=== PATIENT | male | born 1960 | race Caucasian/White ===

== ENCOUNTER 2016-09-18 08:00 | Emergency (ER) | payer OTHER ==
--- NOTE | 2016-09-18 09:50 | ED CLINICAL REPORT ---
Clinical Report - Physicians/Mid Levels [facility] [address] [place] [address] 09/18/2016 8:01 Patient: LAWRENCE AGOSTO Time Seen: 08:44 Sep 18 2016. Arrived- By private vehicle. Historian- patient. CPT: ER phys charges level 3 (#498151). HISTORY OF PRESENT ILLNESS Chief Complaint: CHEST PAIN. It is described as sharp, "pain" and well localized and it is described as located in the right chest area. At its maximum, severity described as moderate. When seen in the E.D., severity described as moderate. Modifying factors- worsened by movement. Relieved by rest. (trauma to the area 10 weeks ago. 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 No nausea, vomiting, difficulty breathing or diaphoresis. Similar symptoms previously: None. Recent medical care: Not recently seen/assessed. REVIEW OF SYSTEMS No fever, chills, cough, pedal edema or calf pain. No fainting episodes, sore throat, abdominal pain, black stools or difficulty with urination. No skin rash, enlarged lymph nodes or joint pain. All systems otherwise negative, except as recorded above. PAST HISTORY Negative cardiac w/u 1 year ago. Moderate gastroesophageal reflux. Medications: None. Allergies: No Known Drug Allergy. SOCIAL HISTORY Never smoker. Occasional alcohol use. No drug use. ADDITIONAL NOTES The nursing notes have been reviewed. PHYSICAL EXAM Vital Signs: 09/18/2016 08:13 BP: 150/91. HR: 77. RR: 18. O2 saturation: 100%. Temp: 98.6 F. Appearance: Alert. Patient in moderate distress. Eyes: Eyes normal inspection. ENT: Pharynx normal. Neck: Normal inspection. CVS: Normal heart rate and rhythm. Heart sounds normal. Pulses normal. Respiratory: No respiratory distress. Chest pain reproducible with palpation of the costal cartilage and anterior chest wall, with movement of the trunk and right arm and with deep breathing. Breath sounds normal. Abdomen: Soft and nontender. Back: Normal external inspection. Skin: Skin warm. Normal skin color. No rash. Extremities: Extremities exhibit normal ROM. No calf tenderness. No lower extremity edema. Neuro: Oriented X 3. No motor deficit. No sensory deficit. LABS, X-RAYS, AND EKG EKG: Normal EKG. X-Rays: Rib series negative. Chest X-ray: (mild bibasilar atelectasis.). Views: PA. Technique: good. The X-rays were independently viewed by me and interpreted contemporaneously by me. Prior films were not available for comparison. PROGRESS AND PROCEDURES Course of Care: [place]. Patient/family counseled. Disposition: Discharged. Condition: stable. CLINICAL IMPRESSION Right sided rib separation due to trauma. INSTRUCTIONS (Must wear an external tactical vest until symptoms resolve. It may take 12 weeks or longer to resolve symptoms.). Warnings: Further evaluation is necessary. GENERAL WARNINGS: Return or contact your physician immediately if your condition worsens or changes unexpectedly, if not improving as expected, or if other problems arise. OTC Medications: Acetaminophen (available over the counter): take according to label instructions. Motrin (available over the counter): take according to label instructions. Follow-up: Follow up with your doctor in one week. Call for an appointment. Understanding of the discharge instructions verbalized by patient. (Electronically signed by Jorge Diaz MD 09/22/2016 21:22)
--- NOTE | 2016-09-18 09:50 | ED NURSING NOTES ---
Clinical Report - Nurses [facility] [address] [place] [address] 09/18/2016 8:01 [id number] Triage time 08:Sep 18 2016. Acuity: LEVEL 3. OLY COMA SCORE: Oly Coma Scale: 15- eyes open spontaneously (4); best verbal response- oriented x 4 (5); best motor response- obeys commands (6). --08:24 Addison Fernandez R.N. 08:13 09/18/16. BP: 150/91. HR: 77. RR: 18. O2 saturation: 100%. Temp: 98.6 F. Pain level now 10. --08:24 Addison Fernandez R.N. Chief Complaint: INJURY TO THE RIGHT CLAVICLE AREA. --10:14 Addison Fernandez R.N. Weight: 87.9 kg stated. Height/Length: 69 inches Per Patient. BMI: 28.6. --08:19 Addison Fernandez R.N. Medications None. --10:13 Addison Fernandez R.N. Allergies No Known Drug Allergy. --10:13 Addison Fernandez R.N. History Arrived by private vehicle. Historian: patient. This occurred (3 months ago). Occurred at work. ( Jun 16 was in a training exercise and a 250 lb reynaldo rolled on top of him and the guys elbow went into his chest. 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 Has episodes of pain and episodes of felling fine. Woke up this am and felt the intense pain in the right upper chest that radiates into the back.). PAST MEDICAL HX: No history of diabetes mellitus, hypertension, heart disease or lung disease. Tetanus status: more than 5 years ago. Immunizations: up-to-date. SOCIAL HX: Never smoker. Occasional alcohol use. No drug use. SELF HARM ASSESSMENT: A self harm assessment was performed. The patient answered "no" to the question "Have you recently felt down, depressed, or hopeless?" and "Do you have thoughts of harming or killing yourself?". FALL RISK ASSESSMENT: Fall risk assessment completed. No fall risk identified. NUTRITIONAL RISK ASSESSMENT: The nutritional risk assessment revealed no deficiencies. FUNCTIONAL ASSESSMENT: Functional assessment: no impairments noted. LEARNING NEEDS ASSESSMENT: The learning needs assessment revealed no barriers. ABUSE ASSESSMENT: Abuse assessment: (yes) The patient was asked "Do you feel safe in your home?". SKIN INTEGRITY ASSESSMENT: Skin integrity risk assessment completed. No skin integrity risk identified. --08:24 Addison Fernandez R.N. ADDITIONAL SURGERIES: Wrist . --10:14 Addison Fernandez R.N. Interventions ID band on patient. --08:24 Addison Fernandez R.N. PHYSICAL ASSESSMENT Ambulatory to room. GENERAL / NEURO / PSYCH: Oriented X 4. Appears anxious. EXTREMITIES: Capillary refill is less than 2 seconds in the extremities. Extremity pulses are within normal limits. Extremities exhibit normal ROM. Neuro-vascular status intact to the extremity. SKIN: Skin intact. Skin is warm and dry. --08:24 Addison Fernandez R.N. NURSING PROGRESS NOTES The initial plan of care for this patient includes an assessment with efforts to address patient positioning and appropriate ambient lighting. Patient gowned. Reassurance given. Call light placed in reach. Side rails up x 1. Bed placed in lowest position. Brakes of bed on. --08:24 Addison Fernandez R.N. ( Placed on teletypesetter monitor, NSR with rate 75). --08:29 Cynthia Singleton R.N. 08:59 09/18/2016 Site #1 started via IV in the left wrist with an 20g angiocath; one attempt. Saline lock flushed with 10 mL saline. --09:14 Addison Fernandez R.N. DISPOSITION / DISCHARGE 09:40 09/18/16. BP: 116/89. HR: 88. RR: 18. O2 saturation: 100%. Temp: 98.4 F. Pain level now: 06/12. --10:12 Addison Fernandez R.N. Departure time: 10:Sep 18 2016. Condition at departure: improved. No learning barriers present. Discharge instructions provided and reviewed with the patient. Reviewed warnings. Reviewed medication(s). Treatments reviewed. Reviewed referrals. Work note given. Patient verbalized understanding. Written instructions provided in Irish. The patient was discharged home. He left the Emergency Department ambulatory and via private vehicle. Patient driving. --10:12 Addison Fernandez R.N. 09:57 09/18/2016 Site #1 removed upon discharge. Catheter intact. Pressure dressing applied. --10:12 Addison Fernandze R.N. Locked/Released at 09/21/2016 10:51 by Addison Fernandez R.N.
--- NOTE | 2016-09-18 09:50 | ED NURSING NOTES ---
Clinical Report - Nurses [facility] [address] [place] [address] 09/18/2016 8:01 [id number] Triage time 08:Sep 18 2016. Acuity: LEVEL 3. OLY COMA SCORE: Oly Coma Scale: 15- eyes open spontaneously (4); best verbal response- oriented x 4 (5); best motor response- obeys commands (6). --08:24 Addison Fernandez R.N. 08:13 09/18/16. BP: 150/91. HR: 77. RR: 18. O2 saturation: 100%. Temp: 98.6 F. Pain level now 10. --08:24 Addison Fernandez R.N. Chief Complaint: INJURY TO THE RIGHT CLAVICLE AREA. --10:14 Addison Fernandez R.N. Weight: 87.9 kg stated. Height/Length: 69 inches Per Patient. BMI: 28.6. --08:19 Addison Fernandez R.N. Medications None. --10:13 Addison Fernandez R.N. Allergies No Known Drug Allergy. --10:13 Addison Fernandez R.N. History Arrived by private vehicle. Historian: patient. This occurred (3 months ago). Occurred at work. ( Jun 16 was in a training exercise and a 250 lb reynaldo rolled on top of him and the guys elbow went into his chest. 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 Has episodes of pain and episodes of felling fine. Woke up this am and felt the intense pain in the right upper chest that radiates into the back.). PAST MEDICAL HX: No history of diabetes mellitus, hypertension, heart disease or lung disease. Tetanus status: more than 5 years ago. Immunizations: up-to-date. SOCIAL HX: Never smoker. Occasional alcohol use. No drug use. SELF HARM ASSESSMENT: A self harm assessment was performed. The patient answered "no" to the question "Have you recently felt down, depressed, or hopeless?" and "Do you have thoughts of harming or killing yourself?". FALL RISK ASSESSMENT: Fall risk assessment completed. No fall risk identified. NUTRITIONAL RISK ASSESSMENT: The nutritional risk assessment revealed no deficiencies. FUNCTIONAL ASSESSMENT: Functional assessment: no impairments noted. LEARNING NEEDS ASSESSMENT: The learning needs assessment revealed no barriers. ABUSE ASSESSMENT: Abuse assessment: (yes) The patient was asked "Do you feel safe in your home?". SKIN INTEGRITY ASSESSMENT: Skin integrity risk assessment completed. No skin integrity risk identified. --08:24 Addison Fernandez R.N. ADDITIONAL SURGERIES: Wrist . --10:14 Addison Fernandez R.N. Interventions ID band on patient. --08:24 Addison Fernandez R.N. PHYSICAL ASSESSMENT Ambulatory to room. GENERAL / NEURO / PSYCH: Oriented X 4. Appears anxious. EXTREMITIES: Capillary refill is less than 2 seconds in the extremities. Extremity pulses are within normal limits. Extremities exhibit normal ROM. Neuro-vascular status intact to the extremity. SKIN: Skin intact. Skin is warm and dry. --08:24 Addison Fernandez R.N. NURSING PROGRESS NOTES The initial plan of care for this patient includes an assessment with efforts to address patient positioning and appropriate ambient lighting. Patient gowned. Reassurance given. Call light placed in reach. Side rails up x 1. Bed placed in lowest position. Brakes of bed on. --08:24 Addison Fernandez R.N. ( Placed on diagnostic cardiac sonographer, NSR with rate 75). --08:29 Cynthia Singleton R.N. 08:59 09/18/2016 Site #1 started via IV in the left wrist with an 20g angiocath; one attempt. Saline lock flushed with 10 mL saline. --09:14 Addison Fernandez R.N. DISPOSITION / DISCHARGE 09:40 09/18/16. BP: 116/89. HR: 88. RR: 18. O2 saturation: 100%. Temp: 98.4 F. Pain level now: 06/12. --10:12 Addison Fernandez R.N. Departure time: 10:Sep 18 2016. Condition at departure: improved. No learning barriers present. Discharge instructions provided and reviewed with the patient. Reviewed warnings. Reviewed medication(s). Treatments reviewed. Reviewed referrals. Work note given. Patient verbalized understanding. Written instructions provided in Lithuanian. The patient was discharged home. He left the Emergency Department ambulatory and via private vehicle. Patient driving. --10:12 Addison Fernandez R.N. 09:57 09/18/2016 Site #1 removed upon discharge. Catheter intact. Pressure dressing applied. --10:12 Addison Fernandez R.N. Locked/Released at 09/21/2016 10:51 by Addison Fernandez R.N.
--- NOTE | 2016-09-18 09:50 | ED ORDER SUMMARY ---
..... Patient: LAWRENCE AGOSTO OrderSheet [facility] VisitID: [id number] [address] [place] [address] 56y, M Registration Date/Time: 09/18/2016 ORDER SHEET Weight: 87.9 kg (stated) Allergies: No Known Drug Allergy GENERAL ORDERS: Ribs Unilat w PA Chest Right Urgent (09:08 09/18/2016 Robe MORAN) (Ack 9:10 [facility]) (9:14 LWhalen R.N.) EKG - ER Stat (:09/18/2016 Robe MORAN) (9:14 LWhalfitz R.N.) MEDICATION ORDERS: IV FLUIDS: IV Saline Lock (:09/18/2016 Robe MORAN) (9:14 LWhalen R.N.) ORDER SHEET NOTES: [Electronically signed by Addison Fernandez R.N. (10:51 09/21/2016)] [Electronically signed by Jorge Diaz MD (21:22 09/22/2016)] [Electronically locked/signed by Addison Fernandez R.N. (10:51 09/21/2016)]
--- NOTE | 2016-09-18 09:50 | ED CLINICAL REPORT ---
Clinical Report - Physicians/Mid Levels [facility] [address] [place] [address] 09/18/2016 8:01 Patient: LAWRENCE AGOSTO Time Seen: 08:44 Sep 18 2016. Arrived- By private vehicle. Historian- patient. CPT: ER phys charges level 3 (#648982). HISTORY OF PRESENT ILLNESS Chief Complaint: CHEST PAIN. It is described as sharp, "pain" and well localized and it is described as located in the right chest area. At its maximum, severity described as moderate. When seen in the E.D., severity described as moderate. Modifying factors- worsened by movement. Relieved by rest. (trauma to the area 10 weeks ago. 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 No nausea, vomiting, difficulty breathing or diaphoresis. Similar symptoms previously: None. Recent medical care: Not recently seen/assessed. REVIEW OF SYSTEMS No fever, chills, cough, pedal edema or calf pain. No fainting episodes, sore throat, abdominal pain, black stools or difficulty with urination. No skin rash, enlarged lymph nodes or joint pain. All systems otherwise negative, except as recorded above. PAST HISTORY Negative cardiac w/u 1 year ago. Moderate gastroesophageal reflux. Medications: None. Allergies: No Known Drug Allergy. SOCIAL HISTORY Never smoker. Occasional alcohol use. No drug use. ADDITIONAL NOTES The nursing notes have been reviewed. PHYSICAL EXAM Vital Signs: 09/18/2016 08:13 BP: 150/91. HR: 77. RR: 18. O2 saturation: 100%. Temp: 98.6 F. Appearance: Alert. Patient in moderate distress. Eyes: Eyes normal inspection. ENT: Pharynx normal. Neck: Normal inspection. CVS: Normal heart rate and rhythm. Heart sounds normal. Pulses normal. Respiratory: No respiratory distress. Chest pain reproducible with palpation of the costal cartilage and anterior chest wall, with movement of the trunk and right arm and with deep breathing. Breath sounds normal. Abdomen: Soft and nontender. Back: Normal external inspection. Skin: Skin warm. Normal skin color. No rash. Extremities: Extremities exhibit normal ROM. No calf tenderness. No lower extremity edema. Neuro: Oriented X 3. No motor deficit. No sensory deficit. LABS, X-RAYS, AND EKG EKG: Normal EKG. X-Rays: Rib series negative. Chest X-ray: (mild bibasilar atelectasis.). Views: PA. Technique: good. The X-rays were independently viewed by me and interpreted contemporaneously by me. Prior films were not available for comparison. PROGRESS AND PROCEDURES Course of Care: [place]. Patient/family counseled. Disposition: Discharged. Condition: stable. CLINICAL IMPRESSION Right sided rib separation due to trauma. INSTRUCTIONS (Must wear an external tactical vest until symptoms resolve. It may take 12 weeks or longer to resolve symptoms.). Warnings: Further evaluation is necessary. GENERAL WARNINGS: Return or contact your physician immediately if your condition worsens or changes unexpectedly, if not improving as expected, or if other problems arise. OTC Medications: Acetaminophen (available over the counter): take according to label instructions. Motrin (available over the counter): take according to label instructions. Follow-up: Follow up with your doctor in one week. Call for an appointment. Understanding of the discharge instructions verbalized by patient. (Electronically signed by Jorge Diaz MD 09/22/2016 21:22)
--- NOTE | 2016-09-18 09:50 | ED ORDER SUMMARY ---
..... Patient: LAWRENCE AGOSTO OrderSheet [facility] VisitID: [id number] [address] [place] [address] 56y, M Registration Date/Time: 09/18/2016 ORDER SHEET Weight: 87.9 kg (stated) Allergies: No Known Drug Allergy GENERAL ORDERS: Ribs Unilat w PA Chest Right Urgent (09:08 09/18/2016 Robe MORAN) (Ack 9:10 [facility]) (9:14 LWhalen R.N.) EKG - ER Stat (:09/18/2016 Robe MORAN) (9:14 LWhalfitz R.N.) MEDICATION ORDERS: IV FLUIDS: IV Saline Lock (:09/18/2016 Robe MORAN) (9:14 LWhalen R.N.) ORDER SHEET NOTES: [Electronically signed by Addison Fernandez R.N. (10:51 09/21/2016)] [Electronically signed by Jorge Diaz MD (21:22 09/22/2016)] [Electronically locked/signed by Addison Fernandez R.N. (10:51 09/21/2016)]
--- NOTE | 2016-09-18 10:30 | DIAGNOSTIC IMAGING REPORT ---
PROCEDURE: XR RIBS UNILAT W/PA CHEST-RT INDICATION: TRAUMA/INJURY TECHNIQUE: Two views of the right ribs with single PA view chest. COMPARISON: None. FINDINGS: RIGHT RIBS: No displaced rib fractures. No suspicious rib lesions. CHEST: Normal cardiomediastinal contour. Clear lungs without pleural effusion, pneumothorax, or contusion. The other visible osseous structures are intact. IMPRESSION: 1. Intact right ribs. 2. Normal chest without radiographic evidence of trauma.
--- NOTE | 2016-09-22 21:22 | ED MAR SUMMARY ---
..... Medication Administration Record [facility] [address], [place] [id number] Patient: LAWRENCE AGOSTO Visit ID: [id number] 56y, M Weight: 87.9 kg Height/Length: 69 in BMI: 28.6 ALLERGIES: No Known Drug Allergy
--- NOTE | 2016-09-22 21:22 | ED MED RECONCILIATION SUMMARY ---
Patient: LAWRENCE AGOSTO Medication Reconciliation Report [facility] VisitID: [id number] [address] [place] [address] 56y, M Registration Date/Time: 09/18/2016 Weight: 87.9 kg Height/Length: 69 in. BMI: 28.6 ALLERGIES: No Known Drug Allergy The patient's Home Medications are listed below: NONE. The source(s) of the original Home Medication information: Not obtained. The following Medications were given to the patient in the Emergency Department: None. The following Medications were prescribed to the patient: Acetaminophen (available over the counter): take according to label instructions. -- Jorge Diaz MD Motrin (available over the counter): take according to label instructions. -- Jorge Diaz MD
--- NOTE | 2016-09-22 21:22 | ED MAR SUMMARY ---
..... Medication Administration Record [facility] [address] [place], [place] [id number] Patient: LAWRENCE AGOSTO Visit ID: [id number] 56y, M Weight: 87.9 kg Height/Length: 69 in BMI: 28.6 ALLERGIES: No Known Drug Allergy
--- NOTE | 2016-09-22 21:22 | ED MED RECONCILIATION SUMMARY ---
Patient: LAWRENCE AGOSTO Medication Reconciliation Report [facility] VisitID: [id number] [address] [place] [address] 56y, M Registration Date/Time: 09/18/2016 Weight: 87.9 kg Height/Length: 69 in. BMI: 28.6 ALLERGIES: No Known Drug Allergy The patient's Home Medications are listed below: NONE. The source(s) of the original Home Medication information: Not obtained. The following Medications were given to the patient in the Emergency Department: None. The following Medications were prescribed to the patient: Acetaminophen (available over the counter): take according to label instructions. -- Jorge Diaz MD Motrin (available over the counter): take according to label instructions. -- Jorge Diaz MD
--- NOTE | 2016-09-22 21:22 | ED DISCHARGE INSTRUCTIONS ---
Patient: LAWRENCE AGOSTO General Instructions [facility] VisitID: [id number] [address] [place] [address] 56y, M Registration Date/Time: 09/18/2016 Right sided rib separation due to trauma. INSTRUCTIONS (Must wear an external tactical vest until symptoms resolve. It may take 12 weeks or longer to resolve symptoms.). Warnings: Further evaluation is necessary. GENERAL WARNINGS: Return or contact your physician immediately if your condition worsens or changes unexpectedly, if not improving as expected, or if other problems arise. OTC Medications: Acetaminophen (available over the counter): take according to label instructions. Motrin (available over the counter): take according to label instructions. Follow-up: Follow up with your doctor in one week. Call for an appointment. Understanding of the discharge instructions verbalized by patient. (Electronically signed by Jorge Diaz MD 09/22/2016 21:22)
--- NOTE | 2016-09-22 21:22 | ED DISCHARGE INSTRUCTIONS ---
Patient: LAWRENCE AGOSTO General Instructions [facility] VisitID: [id number] [address] [place] [address] 56y, M Registration Date/Time: 09/18/2016 Right sided rib separation due to trauma. INSTRUCTIONS (Must wear an external tactical vest until symptoms resolve. It may take 12 weeks or longer to resolve symptoms.). Warnings: Further evaluation is necessary. GENERAL WARNINGS: Return or contact your physician immediately if your condition worsens or changes unexpectedly, if not improving as expected, or if other problems arise. OTC Medications: Acetaminophen (available over the counter): take according to label instructions. Motrin (available over the counter): take according to label instructions. Follow-up: Follow up with your doctor in one week. Call for an appointment. Understanding of the discharge instructions verbalized by patient. (Electronically signed by Jorge Diaz MD 09/22/2016 21:22)
== END 2016-09-18 10:10 | disposition home or self-care (01) ==
LOC: ED SRH 08:00
DX: S23.29XA Dislocation of other parts of thorax, initial encounter (principal); W50.0XXA Accidental hit or strike by another person, initial encounter; Y93.72 Activity, wrestling; Y99.0 Civilian activity done for income or pay; Y92.89 Other specified places as the place of occurrence of the external cause

== ENCOUNTER 2016-11-01 11:04 | Emergency (ER) | payer OTHER ==
--- NOTE | 2016-11-01 12:36 | ED CLINICAL REPORT ---
Clinical Report - Physicians/Mid Levels [facility] [address] [place] [address] 11/01/2016 11:06 Patient: LAWRENCE AGOSTO Time Seen: 12:12; initial patient contact, initial documentation, patient care assumed. Arrived- By private vehicle. Historian- patient. HISTORY OF PRESENT ILLNESS Chief Complaint: Injury to right leg. The injury happened yesterday. Occurred at home. ( off duty, heard house alarm, someone trying to break in, went chasing after suspect, went down steep hill and felt something pull in his R calf). Patient is experiencing moderate pain. Patient denies injury to the head or neck. No other injury. (hurts worse to walk on it and flex foot). REVIEW OF SYSTEMS The patient complains of pain on weight bearing. No swelling, tingling, weakness, numbness or skin laceration. All systems otherwise negative, except as recorded above. PAST HISTORY See nurses notes. ( PROBLEMS: Gastroesophageal Reflux. --11:20 Deborah Cooley, R.N. ADDITIONAL SURGERIES: Wrist . --11:20 Deborah Cooley, R.N.). SOCIAL HISTORY Never smoker. Occasional alcohol use. No drug use. No recent travel. Is a local resident. FAMILY HISTORY No significant family medical history. ADDITIONAL NOTES The nursing notes have been reviewed with agreement regarding the chief complaint, HPI, ROS, PMH and patient medications and allergies. PHYSICAL EXAM Vital Signs: 11/01/2016 11:17 BP: 115/80. HR: 70. RR: 16. O2 saturation: 100%. Temp: 97.7 F. Have been reviewed as normal and appear to be correct. Appearance: Alert. Oriented X3. No acute distress. Head: Head atraumatic. Eyes: Pupils equal, round and reactive to light. Eyes normal inspection. Respiratory: No respiratory distress. Skin: Skin intact. Skin warm and dry. Normal skin color. Normal skin turgor. Extremities: Right leg: mild tenderness located in the posterior aspect of upper leg. Limited weight bearing secondary to pain. Neurovascular intact distally. (upper calf tenderness). No erythema, swelling, laceration, abrasion or ecchymosis. No puncture wound, foreign body or deformity. Lower extremity exam otherwise negative. Extremities otherwise negative. Gait: Abnormal gait. Limping gait. Neuro, Vascular and Tendons: Vascular status intact. Sensation intact. Motor intact. Tendon function intact. Neuro: Oriented X 3. No motor deficit. No sensory deficit. Note: isolated injury to leg. 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 nita De La Torre reporting pt swearing and using the 'fuck' word, over his work note, and stating that he can't believe I would treat an officer this way, and don't we know what we do out there on the line every day 12:55 11/01/16. L&I paperwork completed 1310. 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 Patient counseled in person regarding the patient's stable condition and diagnosis. Differential Diagnosis: I considered fracture, stress fracture, bone contusion, sprain, hyperextension, ligament tear, soft tissue injury, soft tissue hematoma, myositis, fasciitis, tendonitis and bursitis as a possible cause of lower extremity pain in this patient. This is a partial list of diagnoses considered. Above considerations are based on history and physical exam. Differential diagnosis was discussed with patient. Disposition: Discharged home in good and improved condition (12:36). Condition: good and stable. CLINICAL IMPRESSION Muscle strain of the right gastrocnemius. INSTRUCTIONS Wear elastic wrap (Ghassan wrap) as directed for one weeks as needed and until better. You may walk and bear weight as tolerated. Do not work for two days. Warnings: GENERAL WARNINGS: Return or contact your physician immediately if your condition worsens or changes unexpectedly, if not improving as expected, or if other problems arise. Specifically return if problem worsens. Prescription Medications: Ultram 50 mg tablets: take 1-2 orally every 6 hours as needed for pain. Dispense twenty (20). No refills. Substitution is permissible. Follow-up: Follow up with your doctor in about five days as needed. Call for an appointment. Summary of care provided to patient. Understanding of the discharge instructions verbalized by patient. (Electronically signed by Mary Maldonado A.R.N.P. 11/01/2016 13:27)
--- NOTE | 2016-11-01 12:36 | ED ORDER SUMMARY ---
..... Patient: LAWRENCE AGOSTO OrderSheet [facility] VisitID: [id number] [address] [place] [address] 56y, M Registration Date/Time: 11/01/2016 ORDER SHEET Weight: 83.9 kg (stated) Allergies: No Known Drug Allergy GENERAL ORDERS: Ghassan Wrap (12:28 11/01/2016 Roberto Carlos A.R.N.P.) (12:55 [facility] MEDICATION ORDERS: IV FLUIDS: ORDER SHEET NOTES: [Electronically signed by Deborah Cooley R.N. (13:18 11/01/2016)] [Electronically signed by Mary MaldonadoR.N.P. (13:27 11/01/2016)] [Electronically locked/signed by Deborah Cooley R.N. (13:18 11/01/2016)]
--- NOTE | 2016-11-01 12:36 | ED NURSING NOTES ---
Clinical Report - Nurses [facility] [place] [address] 11/01/2016 11:06 [id number] Triage time 11:17. Acuity: LEVEL 4. Chief Complaint: INJURY TO THE RIGHT LEG. Alert. --11:23 Deborah Cooley R.N. 11:17 11/01/16. BP: 115/80. HR: 70. RR: 16. O2 saturation: 100%. Temp: 97.7 F. Pain level now 08/10. --11:23 Deborah Cooley R.N. Weight: 83.9 kg stated. Height/Length: 68 inches Per Patient. BMI: 28.1. --11:17 Deborah Cooley R.N. Medications None. --11:20 Deborah Cooley R.N. Allergies No Known Drug Allergy. --11:20 Deborah Cooley R.N. History Arrived by private vehicle. Historian: patient. Primary physician (none). This occurred yesterday. 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 He has had trouble walking and weakness. 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 SOCIAL HX: Never smoker. Occasional alcohol use. No drug use. --11:23 Deborah Cooley R.N. PROBLEMS: Gastroesophageal Reflux. --11:20 Deborah Cooley R.N. ADDITIONAL SURGERIES: Wrist . --11:20 Deborah Cooley R.N. PHYSICAL ASSESSMENT GENERAL / NEURO / PSYCH: Oriented X 4. Alert. Appears in no acute distress. EXTREMITIES: Capillary refill is less than 2 seconds in the extremities. Right leg: tenderness. SKIN: Skin is warm and dry. --11:25 Deborah Cooley R.N. NURSING PROGRESS NOTES Two patient identifiers checked. Call light placed in reach. Patient ready for evaluation- ED physician notified. --11:25 Deborah Cooley R.N. DISPOSITION / DISCHARGE 13:07 11/01/16. BP: 101/68. HR: 78. RR: 18. O2 saturation: 100%. Temp: 98.2 F. --13:07 Britt Hinton Departure time: 1250. Condition at departure: unchanged. No learning barriers present. Discharge instructions provided and reviewed with the patient. Patient verbalized understanding. Written instructions provided in Welsh. The patient was discharged home. He left the Emergency Department ambulatory and via private vehicle. Patient driving. 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 Pt yelling at staff and using "F" word because he wanted more time off work.). --13:18 Deborah Cooley R.N. Locked/Released at 11/01/2016 13:18 by Deborah Cooley R.N.
--- NOTE | 2016-11-01 12:36 | ED NURSING NOTES ---
Clinical Report - Nurses [facility] [place] [address] 11/01/2016 11:06 [id number] TRI[facility] Triage time 11:17. Acuity: LEVEL 4. Chief Complaint: INJURY TO THE RIGHT LEG. Alert. --11:23 Deborah Cooley R.N. 11:17 11/01/16. BP: 115/80. HR: 70. RR: 16. O2 saturation: 100%. Temp: 97.7 F. Pain level now 08/10. --11:23 Deborah Cooley R.N. Weight: 83.9 kg stated. Height/Length: 68 inches Per Patient. BMI: 28.1. --11:17 Deborah Cooley R.N. Medications None. --11:20 Deborah Cooley R.N. Allergies No Known Drug Allergy. --11:20 Deborah Cooley R.N. History Arrived by private vehicle. Historian: patient. Primary physician (none). This occurred yesterday. 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 He has had trouble walking and weakness. 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 SOCIAL HX: Never smoker. Occasional alcohol use. No drug use. --11:23 Deborah Cooley R.N. PROBLEMS: Gastroesophageal Reflux. --11:20 Deborah Cooley R.N. ADDITIONAL SURGERIES: Wrist . --11:20 Deborah Cooley R.N. PHYSICAL ASSESSMENT GENERAL / NEURO / PSYCH: Oriented X 4. Alert. Appears in no acute distress. EXTREMITIES: Capillary refill is less than 2 seconds in the extremities. Right leg: tenderness. SKIN: Skin is warm and dry. --11:25 Deborah Cooley R.N. NURSING PROGRESS NOTES Two patient identifiers checked. Call light placed in reach. Patient ready for evaluation- ED physician notified. --11:25 Deborah Cooley R.N. DISPOSITION / DISCHARGE 13:07 11/01/16. BP: 101/68. HR: 78. RR: 18. O2 saturation: 100%. Temp: 98.2 F. --13:07 Britt Hinton Departure time: 1250. Condition at departure: unchanged. No learning barriers present. Discharge instructions provided and reviewed with the patient. Patient verbalized understanding. Written instructions provided in Niuean. The patient was discharged home. He left the Emergency Department ambulatory and via private vehicle. Patient driving. 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 Pt yelling at staff and using "F" word because he wanted more time off work.). --13:18 Deborah Cooley R.N. Locked/Released at 11/01/2016 13:18 by Deborah Cooley R.N.
--- NOTE | 2016-11-01 12:36 | ED ORDER SUMMARY ---
..... Patient: LAWRENCE AGOSTO OrderSheet [facility] VisitID: [id number] [address] [place] [address] 56y, M Registration Date/Time: 11/01/2016 ORDER SHEET Weight: 83.9 kg (stated) Allergies: No Known Drug Allergy GENERAL ORDERS: Ghassan Wrap (12:28 11/01/2016 Roberto Carlos A.R.N.P.) (12:55 [facility] MEDICATION ORDERS: IV FLUIDS: ORDER SHEET NOTES: [Electronically signed by Deborah Cooley R.N. (13:18 11/01/2016)] [Electronically signed by Mary MaldonadoR.N.P. (13:27 11/01/2016)] [Electronically locked/signed by Deborah Cooley R.N. (13:18 11/01/2016)]
--- NOTE | 2016-11-01 13:27 | ED MAR SUMMARY ---
..... Medication Administration Record [facility] [address] [place], [place] [id number] Patient: LAWRENCE AGOSTO Visit ID: [id number] 56y, M Weight: 83.9 kg Height/Length: 68 in BMI: 28.1 ALLERGIES: No Known Drug Allergy
--- NOTE | 2016-11-01 13:27 | ED MAR SUMMARY ---
..... Medication Administration Record [facility] [address] [place], [place] [id number] Patient: LAWRENCE AGOSTO Visit ID: [id number] 56y, M Weight: 83.9 kg Height/Length: 68 in BMI: 28.1 ALLERGIES: No Known Drug Allergy
--- NOTE | 2016-11-01 13:27 | ED MED RECONCILIATION SUMMARY ---
Patient: LAWRENCE AGOSTO Medication Reconciliation Report [facility] VisitID: [id number] [place] [address] 56y, M Registration Date/Time: 11/01/2016 Weight: 83.9 kg Height/Length: 68 in. BMI: 28.1 ALLERGIES: No Known Drug Allergy The patient's Home Medications are listed below: NONE. The source(s) of the original Home Medication information: Not obtained. The following Medications were given to the patient in the Emergency Department: None. The following Medications were prescribed to the patient: Ultram 50 mg tablets: take 1-2 orally every 6 hours as needed for pain. Dispense twenty (20). No refills. Substitution is permissible. -- Mary Maldonado A.R.N.P.
--- NOTE | 2016-11-01 13:27 | ED DISCHARGE INSTRUCTIONS ---
Patient: LAWRENCE AGOSTO General Instructions [facility] VisitID: [id number] [place] [address] 56y, M Registration Date/Time: 11/01/2016 Muscle strain of the right gastrocnemius. INSTRUCTIONS Wear elastic wrap (Ghassan wrap) as directed for one weeks as needed and until better. You may walk and bear weight as tolerated. Do not work for two days. Warnings: GENERAL WARNINGS: Return or contact your physician immediately if your condition worsens or changes unexpectedly, if not improving as expected, or if other problems arise. Specifically return if problem worsens. Prescription Medications: Ultram 50 mg tablets: take 1-2 orally every 6 hours as needed for pain. Dispense twenty (20). No refills. Substitution is permissible. Follow-up: Follow up with your doctor in about five days as needed. Call for an appointment. Summary of care provided to patient. Understanding of the discharge instructions verbalized by patient. ADDITIONAL INFORMATION Muscle Strain,Extremity A MUSCLE STRAIN is a stretching and tearing of muscle fibers. This causes pain, especially with motion of that muscle. There may also be some swelling and bruising. Home Care: 1) Keep the injured area raised to reduce pain and swelling. This is especially important during the first 48 hours. 2) Make an ice pack (ice cubes in a plastic bag, wrapped in a towel) and apply for 20 minutes every 1-2 hours the first day. You should continue with ice packs 3-4 times a day for the second and third days. Unless otherwise instructed, on the fourth day you may begin hot soaks or hot packs (small towel soaked in hot water) 3-4 times a day while you gently exercise the involved area. 3) You may use acetaminophen (Tylenol) or ibuprofen (Motrin, Advil) to control pain, unless another medicine was prescribed. [ NOTE : If you have chronic liver or kidney disease or ever had a stomach ulcer or GI bleeding, talk with your doctor before using these medicines.] 4) For LEG STRAINS: If CRUTCHES have been recommended, do not bear full weight on the injured leg until you can do so without pain. You may return to sports when you are able to hop and run on the injured leg without pain. Follow Up with your doctor or this facility if you are not improving within the next five days. Get Prompt Medical Attention if any of the following occur: -- Fingers or toes become swollen, cold, blue, numb or tingly -- Pain or swelling increases Ghassan Wrap An "Ghassan Bandage" refers to any elastic bandage wrap (2-6" wide). This is used to apply support and compression to an arm or leg. It will help prevent or reduce swelling also. When applying the bandage, it should not be stretched too tightly. A tight Ghassan Wrap will reduce circulation and cause tingling or numbness in the hand or foot. It may increase the pain under the bandage. If you get these symptoms, remove the wrap and rest the limb. Symptoms should go away within 1-2 hours. Once symptoms go away, reapply the bandage with less stretch. If symptoms do not go away after 1-2 hours with the bandage off, call your doctor or return to this facility promptly. Tramadol Hydrochloride Oral tablet What is this medicine? TRAMADOL (TRA ma dole) is a pain reliever. It is used to treat moderate to severe pain in adults. How should I use this medicine? Take this medicine by mouth with a full glass of water. Follow the directions on the prescription label. If the medicine upsets your stomach, take it with food or milk. Do not take more medicine than you are told to take. Talk to your wrister regarding the use of this medicine in children. Special care may be needed. What side effects may I notice from receiving this medicine? Side effects that you should report to your doctor or health healthcare network consultant as soon as possible: allergic reactions like skin rash, itching or hives, swelling of the face, lips, or tongue breathing difficulties, wheezing confusion itching light headedness or fainting spells redness, blistering, peeling or loosening of the skin, including inside the mouth seizures Side effects that usually do not require medical attention (report to your doctor or health healthcare network consultant if they continue or are bothersome): constipation dizziness drowsiness headache nausea, vomiting What may interact with this medicine? Do not take this medicine with any of the following medications: MAOIs like Carbex, Eldepryl, Marplan, Nardil, and Parnate This medicine may also interact with the following medications: alcohol or medicines that contain alcohol antihistamines benzodiazepines bupropion carbamazepine or oxcarbazepine clozapine cyclobenzaprine digoxin furazolidone linezolid medicines for depression, anxiety, or psychotic disturbances medicines for migraine headache like almotriptan, eletriptan, frovatriptan, naratriptan, rizatriptan, sumatriptan, zolmitriptan medicines for pain like pentazocine, buprenorphine, butorphanol, meperidine, nalbuphine, and propoxyphene medicines for sleep muscle relaxants naltrexone phenobarbital phenothiazines like perphenazine, thioridazine, chlorpromazine, mesoridazine, fluphenazine, prochlorperazine, promazine, and trifluoperazine procarbazine warfarin What if I miss a dose? If you miss a dose, take it as soon as you can. If it is almost time for your next dose, take only that dose. Do not take double or extra doses. Where should I keep my medicine? Keep out of the reach of children. Store at room temperature between 15 and 30 degrees C (59 and 86 degrees F). Keep container tightly closed. Throw away any unused medicine after the expiration date. What should I tell my health care provider before I take this medicine? They need to know if you have any of these conditions: brain tumor depression drug abuse or addiction head injury if you frequently drink alcohol containing drinks kidney disease or trouble passing urine liver disease lung disease, asthma, or breathing problems seizures or epilepsy suicidal thoughts, plans, or attempt; a previous suicide attempt by you or a family member an unusual or allergic reaction to tramadol, codeine, other medicines, foods, dyes, or preservatives or trying to get breast-feeding What should I watch for while using this medicine? Tell your doctor or health healthcare network consultant if your pain does not go away, if it gets worse, or if you have new or a different type of pain. You may develop tolerance to the medicine. Tolerance means that you will need a higher dose of the medicine for pain relief. Tolerance is normal and is expected if you take this medicine for a long time. Do not suddenly stop taking your medicine because you may develop a severe reaction. Your body becomes used to the medicine. This does NOT mean you are addicted. Addiction is a behavior related to getting and using a drug for a non-medical reason. If you have pain, you have a medical reason to take pain medicine. Your doctor will tell you how much medicine to take. If your doctor wants you to stop the medicine, the dose will be slowly lowered over time to avoid any side effects. You may get drowsy or dizzy. Do not drive, use machinery, or do anything that needs mental alertness until you know how this medicine affects you. Do not stand or sit up quickly, especially if you are an older patient. This reduces the risk of dizzy or fainting spells. Alcohol can increase or decrease the effects of this medicine. Avoid alcoholic drinks. You may have constipation. Try to have a bowel movement at least every 2 to 3 days. If you do not have a bowel movement for 3 days, call your doctor or health healthcare network consultant. Your mouth may get dry. Chewing sugarless gum or sucking hard candy, and drinking plenty of water may help. Contact your doctor if the problem does not go away or is severe. You have been given the following additional information: Muscle Strain, Extremity Ghassan Wrap Tramadol Hydrochloride Oral tablet You may walk and bear weight as tolerated. Do not work for two days. (Electronically signed by Mary Maldonado A.R.N.P. 11/01/2016 13:27)
--- NOTE | 2016-11-01 13:27 | ED MED RECONCILIATION SUMMARY ---
Patient: LAWRENCE AGOSTO Medication Reconciliation Report [facility] VisitID: [id number] [place] [address] 56y, M Registration Date/Time: 11/01/2016 Weight: 83.9 kg Height/Length: 68 in. BMI: 28.1 ALLERGIES: No Known Drug Allergy The patient's Home Medications are listed below: NONE. The source(s) of the original Home Medication information: Not obtained. The following Medications were given to the patient in the Emergency Department: None. The following Medications were prescribed to the patient: Ultram 50 mg tablets: take 1-2 orally every 6 hours as needed for pain. Dispense twenty (20). No refills. Substitution is permissible. -- Mary Maldonado A.R.N.P.
== END 2016-11-01 12:50 | disposition home or self-care (01) ==
LOC: ED SRH 11:04
DX: S86.111A Strain of other muscle(s) and tendon(s) of posterior muscle group at lower leg level, right leg, initial encounter (principal); X50.0XXA Overexertion from strenuous movement or load, initial encounter; Y93.02 Activity, running; Y99.9 Unspecified external cause status; Y92.009 Unspecified place in unspecified non-institutional (private) residence as the place of occurrence of the external cause; K21.9 Gastro-esophageal reflux disease without esophagitis